=== PATIENT | female | born 1940 | race Caucasian/White ===

== ENCOUNTER 2016-12-15 15:02 | Outpatient (CLI) | payer OTHER ==
--- NOTE | 2016-12-15 19:08 | Diagnostic Imaging Report ---
JARRETT ORONA [facility] [id number] [facility] [address] [address] Report Submission Date: Dec 15, 2016 3:49:22 PM CDT Patient Study Name: SKIP ESCALANTE Date: Dec 15, 2016 3:17:07 PM CDT Modality Type: CR Gender: F Description: CHEST : 42 Institution: [facility] Physician: JARRETT ORONA 3 views of the chest History: RT RIBS, UPPER RT POSTERIOR RIB PAIN AFTER FALL ON MONDAY, PAINFUL TO BREATH Findings: No comparison studies Osseous superimposition and deformity posterior right 2nd and 1st ribs seen only on the oblique view concerning for minimally displaced fracture Degenerative changes are noted at the right shoulder, thoracolumbar spine, bones are demineralized Aortic calcification is present. There is minimal right basilar atelectasis. No pneumothorax on the right Impression: 1. Osseous deformity right posterior 1st and 2nd ribs, seen only on the oblique view suggestive of minimally displaced fracture. Underlying minimal right upper lung parenchymal opacity may be due to underlying contusion. No right pneumothorax 2. Demineralized bones. Minimal right basilar atelectasis 3.Degenerative changes right shoulder Electronically signed on Dec 15, 2016 3:49:22 PM CDT by: Christen Jensen Findings discussed by Dr. Jensen with Dr. Orona on 12/15/16 at approx. 3: 52 pm PROGRAM REVIEW DIRECTOR Addendum electronically signed by Christen Jensen on December 15, 2016 3:52:13 PM CDT MTDD
== END 2016-12-15 15:03 ==
LOC: RAD 15:02
PROVIDERS: ATTEND Family Medicine
DX: S20.211A Contusion of right front wall of thorax, initial encounter (principal); X58.XXXA Exposure to other specified factors, initial encounter; Y93.9 Activity, unspecified; Y99.9 Unspecified external cause status
CPT/HCPCS: 71100

== ENCOUNTER 2017-03-02 12:54 | Outpatient (CLI) | payer OTHER | END 2017-03-02 12:55 | LOC: LABRHC 12:54 | PROVIDERS: ATTEND Physician Assistant | DX: N12 Tubulo-interstitial nephritis, not specified as acute or chronic (principal) | CPT/HCPCS: 87086 ==

== ENCOUNTER 2017-03-09 10:52 | Outpatient (CLI) | payer OTHER ==
[2017-03-09 11:18] LABS: BASOPHILS % 0.8 (0.0-1.5); EOSINOPHILS % 4.4 % (0.0-6.8); MEAN CORPUSCULAR HEMOGLOBIN 29.8 pg (28.0-34.0); MEAN CORPUSCULAR VOLUME 87.3 fl (80.0-100.0); MONOCYTES % 3.2 % (0.0-11.0); NEUTROPHILS # 4.2 # k/uL (1.4-7.7)
[2017-03-09 11:54] LABS: eGFR (African) > 60; eGFR (Non-African) > 60
--- NOTE | 2017-03-09 18:46 | Diagnostic Imaging Report ---
JARRETT ANDERSON [facility] [address] [facility] [address] [address] Report Submission Date: Mar 09, 2017 11:52:22 AM CDT Patient Study Name: SKIP ESCALANTE Date: Mar 09, 2017 11:30:27 AM CDT Modality Type: CR Gender: F Description: SHOULDER : 42 Institution: [facility] Physician: JARRETT ANDERSON Examination: Plain film shoulder History: Lump Comparison exams: None provided Findings: 3 views of the shoulder demonstrate normal cortical margins. No evidence for fracture or dislocation. Advanced degenerative disease of the acromioclavicular joint with post superior and inferior spurring. No soft tissue abnormality Impression: Advanced acromioclavicular joint degenerative spurring: likely represents palpable lump. No fracture. Electronically signed on Mar 09, 2017 11:52:22 AM CDT by: Kanu NAGY
== END 2017-03-09 10:53 ==
LOC: LAB 10:52
PROVIDERS: ATTEND Family Medicine
DX: E11.8 Type 2 diabetes mellitus with unspecified complications (principal); R53.83 Other fatigue; M25.512 Pain in left shoulder
CPT/HCPCS: 36415; 73030; 80053; 80061; 82043; 83036; 84443; 85025

== ENCOUNTER 2017-04-20 09:09 | Outpatient (CLI) | payer OTHER ==
[2017-04-20 09:32] LABS: BASOPHILS % 0.8 (0.0-1.5); EOSINOPHILS % 4.3 % (0.0-6.8); MEAN CORPUSCULAR HEMOGLOBIN 29.7 pg (28.0-34.0); MONOCYTES % 3.2 % (0.0-11.0); NEUTROPHILS # 4.4 # k/uL (1.4-7.7)
[2017-04-20 10:03] LABS: eGFR (African) > 60; eGFR (Non-African) > 60
== END 2017-04-20 09:10 ==
LOC: LAB 09:09
PROVIDERS: ATTEND Family Medicine
DX: M79.1 Myalgia (principal)
CPT/HCPCS: 36415; 80053; 82550; 85025

== ENCOUNTER 2017-06-26 13:59 | Outpatient (CLI) | payer OTHER | END 2017-06-26 14:00 | LOC: LAB 13:59 | PROVIDERS: ATTEND Family Medicine | DX: E11.9 Type 2 diabetes mellitus without complications (principal) | CPT/HCPCS: 36415; 83036 ==

== ENCOUNTER 2017-08-29 14:28 | Outpatient (CLI) | payer OTHER ==
[2017-08-29 15:24] LABS: BASOPHILS % 0.8 (0.0-1.5); EOSINOPHILS % 4.3 % (0.0-6.8); MEAN CORPUSCULAR HEMOGLOBIN 29.5 pg (28.0-34.0); MEAN CORPUSCULAR VOLUME 88.4 fl (80.0-100.0); MONOCYTES % 3.8 % (0.0-11.0); NEUTROPHILS # 4.1 # k/uL (1.4-7.7)
[2017-08-29 15:52] LABS: eGFR (African) > 60; eGFR (Non-African) > 60
== END 2017-08-29 14:30 ==
LOC: LAB 14:28
PROVIDERS: ATTEND Family Medicine
DX: M62.838 Other muscle spasm (principal); R20.2 Paresthesia of skin
CPT/HCPCS: 36415; 80053; 83735; 85025

== ENCOUNTER 2017-09-20 09:52 | Outpatient (CLI) | payer OTHER ==
[2017-09-20 10:33] LABS: eGFR (African) > 60; eGFR (Non-African) > 60
== END 2017-09-20 09:53 ==
LOC: LAB 09:52
PROVIDERS: ATTEND Family Medicine
DX: E87.1 Hypo-osmolality and hyponatremia (principal)
CPT/HCPCS: 36415; 80048

== ENCOUNTER 2017-10-23 13:47 | Outpatient (CLI) | payer OTHER | END 2017-10-23 13:50 | LOC: LAB 13:47 | PROVIDERS: ATTEND Family Medicine | DX: E11.9 Type 2 diabetes mellitus without complications (principal) | CPT/HCPCS: 36415; 83036 ==

== ENCOUNTER 2017-11-23 09:55 | Outpatient (CLI) | payer OTHER | END 2017-11-23 09:56 | LOC: RT 09:55 | PROVIDERS: ATTEND Family Medicine | DX: I65.29 Occlusion and stenosis of unspecified carotid artery (principal) ==

== ENCOUNTER 2017-12-14 16:00 | Inpatient (IN) | payer OTHER ==
[2017-12-14] MEDS ORDERED: INSULIN ASPART 100 UNIT SQ SCH (17:45)
--- NOTE | 2017-12-14 17:49 | History and Physical Report ---
History of Present Illnes - History of Present Illness Reason for Visit: Weakness History of Present Illness: Patient transferred from [facility] for SNF care after having a L femoral-popliteal bypass on 12-05-17 for PAD. Her post op course was complicated by a tibial DVT of the L leg and she is now on Eliquis. 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 She reports no BM since before surgery but is comfortable. Pain has been controlled. She apparently spent the first 8 days not wanting to get out of bed but has been better the past 2. - Past Medical History Cardiac: HTN, Hyperlipidemia BUNDLE CLERK: Other (RLS) Gastrointestinal: Diverticulosis Heme/Onc: Anemia NOS, Cancer (CML - Dr. Farley - 2009) Psych: Anxiety, Depression Endocrine: Diabetes, Hypothyroidism - Past Surgical History Past Surgical History: Cholecystectomy, Cataract Removal, ( x 5), Hysterectomy, Hernia Repair, Tubal Ligation, Other (CTR) - Past Family History Mother Family History: Other (Adopted but aunt and brother with CAD) - Past Social History Smoke: No Alcohol: None Drugs: None Lives: With Family (She and her live in her daughter, Anne's basement.) Domestic Violence: Negative - Health Maintenance Health Maintenance: Influenza Vaccine, Pneumococcal Vaccine Influenza Vaccine: Current for this Influenza Season Pneumonia Vaccine: Yes Resuscitation Status: Resusciation Status Resuscitation Status Full Code Review of Systems - Review of Systems Constitutional: Weakness. negative: Fever Eyes: negative: pain ENT: negative: Ear Pain Respiratory: negative: Cough, Shortness of Breath Cardiovascular: negative: Chest Pain Gastrointestinal: Constipation, Other (Poor appetite until today). negative: Nausea, Vomiting, Abdominal Pain, Diarrhea Genitourinary: negative: Dysuria, Incontinence Musculoskeletal: Leg Pain Skin: negative: Rash Neurological: Weakness - Medications/Allergies Allergies/Adverse Reactions: Allergies Allergy/AdvReac Type Severity Reaction Status Date / Time CATY Inhibitors AdvReac Unknown Unverified 03/29/13 16:57 ezetimibe [From Zetia] AdvReac Unknown Unverified 03/29/13 16:57 imatinib mesylate AdvReac Unknown Unverified 03/29/13 16:57 [From Gleevec] pioglitazone HCl [From Actos] AdvReac Unknown Unverified 03/29/13 16:57 simvastatin [From Zocor] AdvReac Unknown Unverified 03/29/13 16:57 contrast dye AdvReac Unknown Uncoded 03/29/13 16:57 Home Medications: Home Medications Diclofenac Sodium 75 mg PO HS 12/14/17 Insulin Glargine,Hum.rec.anlog [Lantus Solostar] 37 units SQ HS 12/14/17 Metformin HCl [Glucophage] 1,000 mg PO 12/14/17 Nilotinib HCl [Tasigna] 200 mg PO BID 12/14/17 Current Inpatient Medications: Current Inpatient Medications Amitriptyline HCl (Elavil) 25 mg PO HS [facility] Carvedilol (Coreg) 6.25 mg PO BID [facility] Gabapentin (Neurontin) 600 mg PO TID [facility] Insulin Detemir (Levemir Flex-Pen) 37 unit SQ HS [facility] Insulin Human Regular (Humulin R) 14 unit SQ AC15 [facility] Levothyroxine Sodium (Synthroid) 200 mcg PO 0700 [facility] Losartan Potassium (Cozaar) 100 mg PO DAILY [facility] Metformin HCl (Glucophage) 1,000 mg PO [facility] Miscellaneous (Diclofenac Sodium [Diclofenac Sodium]) 75 mg PO HS [facility] Miscellaneous (Nilotinib Hcl [Tasigna]) 200 mg PO BID [facility] Miscellaneous (Chem Sticks) 1 each CHEMQID [facility] Exam - Exam General: Alert, Oriented to Person, Oriented to Place, Oriented to Time, Cooperative, No acute distress HEENT: Atraumatic, PERRLA, EOMI, Mouth Mucous membr. moist/[place], Nose Mucous membr. moist/[place] Neck: Normal Range of Motion Lungs: Clear to auscultation, Normal air movement, Speaks full Sentences Cardiovascular: Regular rate Peripheral Pulses: 2+ B Abdomen: Normal bowel sounds Integumentary: Normal, Other (5 stapled incisions on the L leg. Mild erythema at staple sites. No drainage.) Extremities: No edema Neurological: Generalized Weakness Psych/Mental Status: Mental status NL, Mood NL, Appropriate Affect, Intact Judgment Assessment/Plan - Assessment/Plan (1) Weakness Status: Acute Current Visit: Yes Plan: Will admit patient to SNF for PT/OT for endurance and strengthening. (2) S/P femoral-popliteal bypass surgery Status: Acute Current Visit: Yes Plan: Patient is doing well. She is scheduled to see Dr. Santiago on 12-27-17 at 10:30 for wound check. We do not have staple removal orders. Will check with him. (3) Left leg DVT Status: Acute Current Visit: Yes Qualifiers: Affected thrombotic vein of extremity: tibial Chronicity: acute Qualified Code(s): I82.442 - Acute embolism and thrombosis of left tibial vein Plan: Patient is currently on Eliquis for this. She is on a lower dose of 2.5 mg bid due to the interaction with her chemotherapy medication. (4) CML (chronic myelocytic leukemia) Status: Chronic Current Visit: No Plan: Continue chemotherapy medication. Labs in a week and fax to DR. Farley. (5) HTN (hypertension) Status: Chronic Current Visit: No Qualifiers: Hypertension type: essential hypertension Qualified Code(s): I10 - Essential (primary) hypertension Plan: While at [facility] HCTZ 12.5 mg was added to her regimen. HOwever I do not see it on her d/c orders. Will watch BP. (6) Anemia Status: Acute Current Visit: Yes Qualifiers: Anemia type: unspecified type Qualified Code(s): D64.9 - Anemia, unspecified (7) Diabetes Status: Acute Current Visit: Yes Qualifiers: Diabetes mellitus type: type 2 Diabetes mellitus complication status: without complication Plan: A1C had been in the 7 range until September 2017 when it was over 8. She is now on basal insulin as well as SSI. Will watch closely. VTE Assessment - RISK FACTOR SCORE VTE RISK FACTOR SCORES: AGE OVER 60 YEARS, MAJOR SURGERY/ANESTHESIA TIME > 1 HOUR, MALIGNANCY AND/OR CHEMOTHERAPY, DOCUMENTED HX OF VTE - RISK VTE HIGH RISK: SCORE OF 3-4 (RISK PROXIMAL DVT 4-8%) PROPHYLAXIS NEEDED
[2017-12-14] MEDS ORDERED: MAGNESIUM HYDROXIDE 400 MG/5 ML 30ML UDC PO PRN (17:54)
[2017-12-14] MEDS ORDERED: GABAPENTIN 600 MG PO SCH (18:00)
[2017-12-14] MEDS: INSULIN DETEMIR 100 UNIT/ML 3ML PEN.INJCTR SQ SCH ×2 (18:14→20:27)
[2017-12-14] MEDS: LEVOTHYROXINE SODIUM 100 MCG TABLET PO SCH (18:15)
[2017-12-14] MEDS: POLYETHYLENE GLYCOL 3350 17 GM POWD.PACK PO SCH (19:19)
[2017-12-14] MEDS: GABAPENTIN 300 MG CAPSULE PO SCH (19:19)
[2017-12-14] MEDS: APIXABAN 2.5 MG TABLET PO SCH ×2 (19:20→20:24)
[2017-12-14 20:10] VITALS: BMI 35.7
[2017-12-14] MEDS: AMITRIPTYLINE HCL 25 MG TABLET PO SCH (20:25)
[2017-12-14] MEDS: CARVEDILOL 6.25 MG TABLET PO SCH (20:25)
[2017-12-14] MEDS: NILOTINIB HCL 200 MG PO SCH (20:26)
[2017-12-14] MEDS ORDERED: INSULIN GLARGINE HUM REC ANLOG 37 UNIT SQ SCH (21:00)
[2017-12-14] MEDS ORDERED: DICLOFENAC SODIUM 75 MG PO SCH (21:00)
[2017-12-15] MEDS: HYDROcodone /APAP 5/325 1 EACH TABLET PO PRN ×2 (00:44→09:33)
[2017-12-15] MEDS: LEVOTHYROXINE SODIUM 100 MCG TABLET PO SCH (06:00)
[2017-12-15] MEDS: INSULIN REGULAR, HUMAN 100 UNIT/ML 3ML VIAL SQ SCH ×3 (08:06→17:04)
[2017-12-15] MEDS ORDERED: VALSARTAN 320 MG PO SCH (09:00)
[2017-12-15] MEDS ORDERED: LEVOTHYROXINE SODIUM 200 MCG PO SCH (09:00)
[2017-12-15] MEDS: GABAPENTIN 300 MG CAPSULE PO SCH ×3 (09:33→17:04)
[2017-12-15] MEDS: APIXABAN 2.5 MG TABLET PO SCH ×2 (09:33→20:43)
[2017-12-15] MEDS: CARVEDILOL 6.25 MG TABLET PO SCH ×2 (09:33→20:42)
[2017-12-15] MEDS: LOSARTAN POTASSIUM 50 MG TABLET PO SCH (09:34)
[2017-12-15] MEDS: NILOTINIB HCL 200 MG PO SCH ×2 (09:34→20:45)
[2017-12-15] MEDS: POLYETHYLENE GLYCOL 3350 17 GM POWD.PACK PO SCH (11:14)
[2017-12-15] MEDS: AMITRIPTYLINE HCL 25 MG TABLET PO SCH (20:43)
[2017-12-15] MEDS: DICLOFENAC SODIUM 75 MG PO SCH (20:43)
[2017-12-15] MEDS: INSULIN DETEMIR 100 UNIT/ML 3ML PEN.INJCTR SQ SCH (20:45)
[2017-12-15] MEDS: ACETAMINOPHEN 325 MG TABLET PO PRN (20:50)
[2017-12-16] MEDS: LEVOTHYROXINE SODIUM 100 MCG TABLET PO SCH (06:05)
[2017-12-16 08:08] LABS: BASOPHILS % 0.6 (0.0-1.5); EOSINOPHILS % 3.6 % (0.0-6.8); MEAN CORPUSCULAR HEMOGLOBIN 28.1 pg (28.0-34.0); MEAN CORPUSCULAR VOLUME 93.3 fl (80.0-100.0); MONOCYTES % 3.7 % (0.0-11.0); NEUTROPHILS # 6.3 # k/uL (1.4-7.7)
[2017-12-16] MEDS: INSULIN REGULAR, HUMAN 100 UNIT/ML 3ML VIAL SQ SCH ×3 (08:17→16:15)
[2017-12-16] MEDS: GABAPENTIN 300 MG CAPSULE PO SCH ×3 (08:23→17:46)
[2017-12-16] MEDS: LOSARTAN POTASSIUM 50 MG TABLET PO SCH (08:23)
[2017-12-16] MEDS: CARVEDILOL 6.25 MG TABLET PO SCH ×2 (08:23→20:22)
[2017-12-16] MEDS: APIXABAN 2.5 MG TABLET PO SCH ×2 (08:23→20:23)
--- NOTE | 2017-12-16 08:27 | Inpatient Progress Note ---
Subjective - Required Recertification Statement I anticipate X number of days because-include discharge plan: 20 - Review of Systems Subjective: I was called last night about patient temp 100.1. Today it's 97.6. Denies any complaints. She reports she hasn't urinated since yesterday afternoon but nursing says they put her in a depends last night and changed it twice. She had a UTI and urinary retention at [facility]. Denies pain with urination. Appetite a little better today. General: Denies: Chills, Night Sweats Pulmonary: Denies: Dyspnea, Cough Gastrointestinal: Denies: Nausea, Vomiting, Abdominal Pain Genitourinary: Denies: Dysuria, Frequency Musculoskeletal: Denies: Leg Pain Objective - Exam Vitals and I&O: Vital Signs Temp 100.1 F H 12/15/17 20:31 Pulse 83 12/15/17 20:31 Resp 18 12/15/17 20:31 BP 158/69 12/15/17 20:31 Pulse Ox 93 12/15/17 20:31 Intake & Output 12/15/17 12/15/17 12/16/17 11:59 23:59 11:59 Intake Total 460 840 120 Balance 460 840 120 Intake: Oral 460 840 120 Other: Voiding Method Bedside Commode Bedside Commode # Voids 1 2 General: Alert, Oriented to Person, Oriented to Place, Oriented to Time, Cooperative Lungs: Clear to auscultation, Normal air movement, Speaks full Sentences Cardiovascular: Regular rate Abdomen: Normal bowel sounds, Soft, No tenderness Extremities: No edema, Other (Incisions c/d/i. ) - Results Results: Laboratory Results WBC 10.60 K/ul (4.00-12.00) 12/16/17 08:00 RBC 2.88 M/ul (3.90-5.20) L 12/16/17 08:00 Hgb 8.1 g/dL (12.0-16.0) L 12/16/17 08:00 Hct 26.8 % (34.5-46.5) L 12/16/17 08:00 MCV 93.3 fl (80.0-100.0) 12/16/17 08:00 MCH 28.1 pg (28.0-34.0) 12/16/17 08:00 MCHC 30.1 g/dL (30.0-36.0) 12/16/17 08:00 RDW 13.7 % (11.3-14.3) 12/16/17 08:00 Plt Count 418 K/mm3 (130-400) H 12/16/17 08:00 Neut % (Auto) 59.1 % (39.0-79.0) 12/16/17 08:00 Lymph % (Auto) 30.6 % (16.0-50.0) 12/16/17 08:00 [place] % (Auto) 3.7 % (0.0-11.0) 12/16/17 08:00 Eos % (Auto) 3.6 % (0.0-6.8) 12/16/17 08:00 Baso % (Auto) 0.6 (0.0-1.5) 12/16/17 08:00 Neut # (Auto) 6.3 # k/uL (1.4-7.7) 12/16/17 08:00 Lymph # (Auto) 3.2 # k/uL (0.6-4.0) 12/16/17 08:00 [place] # (Auto) 0.4 # k/uL (0.0-0.9) 12/16/17 08:00 Eos # (Auto) 0.4 # k/uL (0.0-0.6) 12/16/17 08:00 Baso # (Auto) 0.1 # k/uL (0.0-0.5) 12/16/17 08:00 Reactive Lymphs % 2.4 % (0.0-5.0) 12/16/17 08:00 Reactive Lymphs # 0.3 # k/uL (0.0-0.8) 12/16/17 08:00 Assessment/Plan - Assessment/Plan (1) Weakness Status: Acute Current Visit: Yes (2) S/P femoral-popliteal bypass surgery Status: Acute Current Visit: Yes (3) Left leg DVT Status: Acute Current Visit: Yes Qualifiers: Affected thrombotic vein of extremity: tibial Chronicity: acute Qualified Code(s): I82.442 - Acute embolism and thrombosis of left tibial vein (4) CML (chronic myelocytic leukemia) Status: Chronic Current Visit: No (5) HTN (hypertension) Status: Chronic Current Visit: No Qualifiers: Hypertension type: essential hypertension Qualified Code(s): I10 - Essential (primary) hypertension (6) Anemia Status: Acute Current Visit: Yes Qualifiers: Anemia type: unspecified type Qualified Code(s): D64.9 - Anemia, unspecified (7) Diabetes Status: Acute Current Visit: Yes Qualifiers: Diabetes mellitus type: type 2 Diabetes mellitus complication status: without complication (8) Elevated temperature Status: Acute Current Visit: Yes Plan: Resolved this am. Will have her work on IS today. STaff to watch bowels and urination closely and report to me. WBC normal. Known DVT. No infection in wounds.
[2017-12-16] MEDS: NILOTINIB HCL 200 MG PO SCH ×2 (10:00→20:25)
[2017-12-16] MEDS: POLYETHYLENE GLYCOL 3350 17 GM POWD.PACK PO SCH ×2 (11:47→11:58)
[2017-12-16] MEDS: DICLOFENAC SODIUM 75 MG PO SCH (20:22)
[2017-12-16] MEDS: INSULIN DETEMIR 100 UNIT/ML 3ML PEN.INJCTR SQ SCH (20:23)
[2017-12-16] MEDS: AMITRIPTYLINE HCL 25 MG TABLET PO SCH (20:25)
[2017-12-16] MEDS: traMADol HCL 50 MG TABLET PO PRN (20:27)
[2017-12-17] MEDS: LEVOTHYROXINE SODIUM 100 MCG TABLET PO SCH (06:29)
[2017-12-17] MEDS: INSULIN REGULAR, HUMAN 100 UNIT/ML 3ML VIAL SQ SCH ×3 (07:48→16:45)
[2017-12-17] MEDS: GABAPENTIN 300 MG CAPSULE PO SCH ×3 (09:17→18:04)
[2017-12-17] MEDS: CARVEDILOL 6.25 MG TABLET PO SCH ×2 (09:17→20:58)
[2017-12-17] MEDS: APIXABAN 2.5 MG TABLET PO SCH ×2 (09:17→20:58)
[2017-12-17] MEDS: NILOTINIB HCL 200 MG PO SCH ×2 (09:18→20:58)
[2017-12-17] MEDS: LOSARTAN POTASSIUM 50 MG TABLET PO SCH (09:19)
[2017-12-17] MEDS: traMADol HCL 50 MG TABLET PO PRN (09:21)
[2017-12-17] MEDS: POLYETHYLENE GLYCOL 3350 17 GM POWD.PACK PO SCH (11:20)
[2017-12-17] MEDS: INSULIN DETEMIR 100 UNIT/ML 3ML PEN.INJCTR SQ SCH (20:58)
[2017-12-17] MEDS: AMITRIPTYLINE HCL 25 MG TABLET PO SCH (20:58)
[2017-12-17] MEDS: DICLOFENAC SODIUM 75 MG PO SCH (20:58)
[2017-12-18] MEDS: LEVOTHYROXINE SODIUM 100 MCG TABLET PO SCH (06:25)
[2017-12-18] MEDS: INSULIN REGULAR, HUMAN 100 UNIT/ML 3ML VIAL SQ SCH ×3 (07:52→16:45)
[2017-12-18] MEDS: traMADol HCL 50 MG TABLET PO PRN ×2 (08:03→17:52)
[2017-12-18] MEDS: CARVEDILOL 6.25 MG TABLET PO SCH ×2 (08:03→20:13)
[2017-12-18] MEDS: GABAPENTIN 300 MG CAPSULE PO SCH ×3 (08:04→17:52)
[2017-12-18] MEDS: LOSARTAN POTASSIUM 50 MG TABLET PO SCH (08:04)
[2017-12-18] MEDS: APIXABAN 2.5 MG TABLET PO SCH ×2 (08:04→20:13)
[2017-12-18] MEDS: NILOTINIB HCL 200 MG PO SCH ×2 (09:50→20:13)
[2017-12-18] MEDS: POLYETHYLENE GLYCOL 3350 17 GM POWD.PACK PO SCH (11:34)
--- NOTE | 2017-12-18 13:05 | Inpatient Progress Note ---
Subjective - Required Recertification Statement I anticipate X number of days because-include discharge plan: 10 - Review of Systems Subjective: Staff concerned about stapled area being red. Also having some muscle spasms. Objective - Exam Vitals and I&O: Vital Signs Temp 97.7 F 12/18/17 08:13 Pulse 70 12/18/17 09:00 Resp 18 12/18/17 09:00 BP 146/74 12/18/17 08:13 Pulse Ox 94 12/18/17 08:13 Intake & Output 12/17/17 12/18/17 12/18/17 23:59 11:59 23:59 Intake Total 250 370 500 Balance 250 370 500 Intake: Oral 250 370 500 Other: Voiding Method Bedside Commode Bedside Commode # Voids 1 1 # Bowel Movements 1 General: Alert, Oriented to Person, Oriented to Place, Oriented to Time, Cooperative Lungs: Clear to auscultation Cardiovascular: Regular rate Extremities: Other (Stapled area with increased erythema around rosamaria from previous exam. No drainage or tenderness.) - Results Results: Laboratory Results WBC 10.60 K/ul (4.00-12.00) 12/16/17 08:00 RBC 2.88 M/ul (3.90-5.20) L 12/16/17 08:00 Hgb 8.1 g/dL (12.0-16.0) L 12/16/17 08:00 Hct 26.8 % (34.5-46.5) L 12/16/17 08:00 MCV 93.3 fl (80.0-100.0) 12/16/17 08:00 MCH 28.1 pg (28.0-34.0) 12/16/17 08:00 MCHC 30.1 g/dL (30.0-36.0) 12/16/17 08:00 RDW 13.7 % (11.3-14.3) 12/16/17 08:00 Plt Count 418 K/mm3 (130-400) H 12/16/17 08:00 Neut % (Auto) 59.1 % (39.0-79.0) 12/16/17 08:00 Lymph % (Auto) 30.6 % (16.0-50.0) 12/16/17 08:00 [place] % (Auto) 3.7 % (0.0-11.0) 12/16/17 08:00 Eos % (Auto) 3.6 % (0.0-6.8) 12/16/17 08:00 Baso % (Auto) 0.6 (0.0-1.5) 12/16/17 08:00 Neut # (Auto) 6.3 # k/uL (1.4-7.7) 12/16/17 08:00 Lymph # (Auto) 3.2 # k/uL (0.6-4.0) 12/16/17 08:00 [place] # (Auto) 0.4 # k/uL (0.0-0.9) 12/16/17 08:00 Eos # (Auto) 0.4 # k/uL (0.0-0.6) 12/16/17 08:00 Baso # (Auto) 0.1 # k/uL (0.0-0.5) 12/16/17 08:00 Reactive Lymphs % 2.4 % (0.0-5.0) 12/16/17 08:00 Reactive Lymphs # 0.3 # k/uL (0.0-0.8) 12/16/17 08:00 Assessment/Plan - Assessment/Plan (1) Weakness Status: Acute Current Visit: Yes (2) S/P femoral-popliteal bypass surgery Status: Acute Current Visit: Yes Plan: Photo of rosamaria sent to Dr. Santiago who thinks it looks like a normal staple reaction. Will remove every other staple tomorrow. (3) Left leg DVT Status: Acute Current Visit: Yes Qualifiers: Affected thrombotic vein of extremity: tibial Chronicity: acute Qualified Code(s): I82.442 - Acute embolism and thrombosis of left tibial vein (4) CML (chronic myelocytic leukemia) Status: Chronic Current Visit: No (5) HTN (hypertension) Status: Chronic Current Visit: No Qualifiers: Hypertension type: essential hypertension Qualified Code(s): I10 - Essential (primary) hypertension (6) Anemia Status: Acute Current Visit: Yes Qualifiers: Anemia type: unspecified type Qualified Code(s): D64.9 - Anemia, unspecified (7) Diabetes Status: Acute Current Visit: Yes Qualifiers: Diabetes mellitus type: type 2 Diabetes mellitus complication status: without complication (8) Elevated temperature Status: Acute Current Visit: Yes
[2017-12-18] MEDS: AMITRIPTYLINE HCL 25 MG TABLET PO SCH (20:12)
[2017-12-18] MEDS: DICLOFENAC SODIUM 75 MG PO SCH (20:13)
[2017-12-18] MEDS: INSULIN DETEMIR 100 UNIT/ML 3ML PEN.INJCTR SQ SCH (20:19)
[2017-12-19] MEDS: traMADol HCL 50 MG TABLET PO PRN ×3 (02:44→20:53)
[2017-12-19 07:27] LABS: eGFR (African) > 60; eGFR (Non-African) > 60
[2017-12-19] MEDS: INSULIN REGULAR, HUMAN 100 UNIT/ML 3ML VIAL SQ SCH ×3 (07:30→16:35)
[2017-12-19] MEDS: CARVEDILOL 6.25 MG TABLET PO SCH ×2 (09:06→20:25)
[2017-12-19] MEDS: APIXABAN 2.5 MG TABLET PO SCH ×2 (09:07→20:25)
[2017-12-19] MEDS: GABAPENTIN 300 MG CAPSULE PO SCH ×3 (09:07→18:29)
[2017-12-19] MEDS: LOSARTAN POTASSIUM 50 MG TABLET PO SCH (09:12)
[2017-12-19] MEDS: NILOTINIB HCL 200 MG PO SCH ×2 (09:14→20:26)
[2017-12-19 10:49] LABS: BASOPHILS % 0.5 (0.0-1.5); EOSINOPHILS % 5.1 % (0.0-6.8); MEAN CORPUSCULAR HEMOGLOBIN 28.7 pg (28.0-34.0); MEAN CORPUSCULAR VOLUME 89.3 fl (80.0-100.0); MONOCYTES % 4.4 % (0.0-11.0); NEUTROPHILS # 5.4 # k/uL (1.4-7.7)
[2017-12-19] MEDS: POLYETHYLENE GLYCOL 3350 17 GM POWD.PACK PO SCH (11:13)
[2017-12-19] MEDS: LEVOTHYROXINE SODIUM 100 MCG TABLET PO SCH (19:38)
[2017-12-19] MEDS: AMITRIPTYLINE HCL 25 MG TABLET PO SCH (20:25)
[2017-12-19] MEDS: DICLOFENAC SODIUM 75 MG PO SCH (20:26)
[2017-12-19] MEDS: INSULIN DETEMIR 100 UNIT/ML 3ML PEN.INJCTR SQ SCH (20:54)
[2017-12-20] MEDS: LEVOTHYROXINE SODIUM 100 MCG TABLET PO SCH (06:14)
[2017-12-20] MEDS: INSULIN REGULAR, HUMAN 100 UNIT/ML 3ML VIAL SQ SCH ×3 (07:48→16:47)
[2017-12-20] MEDS: GABAPENTIN 300 MG CAPSULE PO SCH ×3 (09:33→17:34)
[2017-12-20] MEDS: CARVEDILOL 6.25 MG TABLET PO SCH ×2 (09:33→20:09)
[2017-12-20] MEDS: APIXABAN 2.5 MG TABLET PO SCH ×2 (09:34→20:08)
[2017-12-20] MEDS: NILOTINIB HCL 200 MG PO SCH ×2 (09:34→20:10)
[2017-12-20] MEDS: traMADol HCL 50 MG TABLET PO PRN ×2 (09:36→21:01)
[2017-12-20] MEDS: LOSARTAN POTASSIUM 50 MG TABLET PO SCH (09:37)
[2017-12-20] MEDS: POLYETHYLENE GLYCOL 3350 17 GM POWD.PACK PO SCH (11:24)
[2017-12-20] MEDS: AMITRIPTYLINE HCL 25 MG TABLET PO SCH (20:09)
[2017-12-20] MEDS: DICLOFENAC SODIUM 75 MG PO SCH (20:10)
[2017-12-20] MEDS: INSULIN DETEMIR 100 UNIT/ML 3ML PEN.INJCTR SQ SCH (20:10)
[2017-12-21] MEDS: LEVOTHYROXINE SODIUM 100 MCG TABLET PO SCH (06:13)
[2017-12-21] MEDS: INSULIN REGULAR, HUMAN 100 UNIT/ML 3ML VIAL SQ SCH ×3 (09:34→17:16)
[2017-12-21] MEDS: APIXABAN 2.5 MG TABLET PO SCH ×2 (10:09→20:03)
[2017-12-21] MEDS: CARVEDILOL 6.25 MG TABLET PO SCH ×2 (10:09→20:03)
[2017-12-21] MEDS: GABAPENTIN 300 MG CAPSULE PO SCH ×3 (10:09→17:39)
[2017-12-21] MEDS: LOSARTAN POTASSIUM 50 MG TABLET PO SCH (10:25)
[2017-12-21] MEDS: NILOTINIB HCL 200 MG PO SCH ×2 (10:25→20:07)
[2017-12-21] MEDS: POLYETHYLENE GLYCOL 3350 17 GM POWD.PACK PO SCH (10:26)
[2017-12-21] MEDS: traMADol HCL 50 MG TABLET PO PRN ×3 (11:25→23:37)
[2017-12-21] MEDS: DICLOFENAC SODIUM 75 MG PO SCH (20:03)
[2017-12-21] MEDS: INSULIN DETEMIR 100 UNIT/ML 3ML PEN.INJCTR SQ SCH (20:03)
[2017-12-21] MEDS: AMITRIPTYLINE HCL 25 MG TABLET PO SCH (20:03)
[2017-12-22] MEDS: LEVOTHYROXINE SODIUM 100 MCG TABLET PO SCH (06:06)
[2017-12-22] MEDS: INSULIN REGULAR, HUMAN 100 UNIT/ML 3ML VIAL SQ SCH ×3 (07:41→18:44)
[2017-12-22] MEDS: LOSARTAN POTASSIUM 50 MG TABLET PO SCH (08:53)
[2017-12-22] MEDS: NILOTINIB HCL 200 MG PO SCH ×2 (08:55→21:42)
[2017-12-22] MEDS: APIXABAN 2.5 MG TABLET PO SCH ×2 (08:56→21:40)
[2017-12-22] MEDS: GABAPENTIN 300 MG CAPSULE PO SCH ×3 (08:56→18:44)
[2017-12-22] MEDS: CARVEDILOL 6.25 MG TABLET PO SCH ×2 (08:56→21:40)
[2017-12-22] MEDS: POLYETHYLENE GLYCOL 3350 17 GM POWD.PACK PO SCH (12:16)
[2017-12-22] MEDS: AMITRIPTYLINE HCL 25 MG TABLET PO SCH (21:41)
[2017-12-22] MEDS: DICLOFENAC SODIUM 75 MG PO SCH (21:42)
[2017-12-22] MEDS: INSULIN DETEMIR 100 UNIT/ML 3ML PEN.INJCTR SQ SCH (22:02)
[2017-12-22] MEDS: traMADol HCL 50 MG TABLET PO PRN (22:17)
[2017-12-23] MEDS: LEVOTHYROXINE SODIUM 100 MCG TABLET PO SCH (06:13)
[2017-12-23] MEDS: INSULIN REGULAR, HUMAN 100 UNIT/ML 3ML VIAL SQ SCH ×3 (07:23→17:36)
[2017-12-23] MEDS: traMADol HCL 50 MG TABLET PO PRN (08:27)
[2017-12-23] MEDS: CARVEDILOL 6.25 MG TABLET PO SCH ×2 (08:56→20:08)
[2017-12-23] MEDS: LOSARTAN POTASSIUM 50 MG TABLET PO SCH (08:56)
[2017-12-23] MEDS: APIXABAN 2.5 MG TABLET PO SCH ×2 (08:57→20:08)
[2017-12-23] MEDS: NILOTINIB HCL 200 MG PO SCH ×2 (08:57→20:09)
[2017-12-23] MEDS: GABAPENTIN 300 MG CAPSULE PO SCH ×3 (08:57→17:37)
--- NOTE | 2017-12-23 09:31 | Inpatient Progress Note ---
Subjective - Required Recertification Statement I anticipate X number of days because-include discharge plan: 7 days - Review of Systems Subjective: Nursing staff has noticed some swelling to the left groin area. Patient does not relate to me any increase pain in the area. No drainage noted. Not red or warm to touch. Incisions look clean and dry. No other complaints, seems to be progressing with PT and OT. Objective - Exam Vitals and I&O: Vital Signs Temp 98 F 12/22/17 20:12 Pulse 76 12/22/17 21:00 Resp 18 12/22/17 21:00 BP 148/60 12/22/17 20:12 Pulse Ox 96 12/22/17 20:12 Intake & Output 12/22/17 12/22/17 12/23/17 11:59 23:59 11:59 Intake Total 520 1860 240 Balance 520 1860 240 Intake: Oral 520 1860 240 Other: Voiding Method Bedside Commode # Voids 2 2 1 General: Alert, Oriented to Person, Oriented to Place, Oriented to Time Lungs: Clear to auscultation, Normal air movement, Speaks full Sentences Cardiovascular: Regular rate, Normal S1, Normal S2, No murmurs Extremities: Other (8x9cm area of induration/hardness to the left upper leg by the proximal incision, no erythema noted. No drainage noted. Nontender to palation. ) Skin: Normal Psych/Mental Status: Mental status NL, Mood NL, Appropriate Affect - Results Results: Laboratory Results WBC 8.70 K/ul (4.00-12.00) 12/19/17 10:35 RBC 2.94 M/ul (3.90-5.20) L 12/19/17 10:35 Hgb 8.4 g/dL (12.0-16.0) L 12/19/17 10:35 Hct 26.2 % (34.5-46.5) L 12/19/17 10:35 MCV 89.3 fl (80.0-100.0) 12/19/17 10:35 MCH 28.7 pg (28.0-34.0) 12/19/17 10:35 MCHC 32.2 g/dL (30.0-36.0) 12/19/17 10:35 RDW 13.7 % (11.3-14.3) 12/19/17 10:35 Plt Count 460 K/mm3 (130-400) H 12/19/17 10:35 Neut % (Auto) 62.2 % (39.0-79.0) 12/19/17 10:35 Lymph % (Auto) 25.4 % (16.0-50.0) 12/19/17 10:35 [place] % (Auto) 4.4 % (0.0-11.0) 12/19/17 10:35 Eos % (Auto) 5.1 % (0.0-6.8) 12/19/17 10:35 Baso % (Auto) 0.5 (0.0-1.5) 12/19/17 10:35 Neut # (Auto) 5.4 # k/uL (1.4-7.7) 12/19/17 10:35 Lymph # (Auto) 2.2 # k/uL (0.6-4.0) 12/19/17 10:35 [place] # (Auto) 0.4 # k/uL (0.0-0.9) 12/19/17 10:35 Eos # (Auto) 0.4 # k/uL (0.0-0.6) 12/19/17 10:35 Baso # (Auto) 0.0 # k/uL (0.0-0.5) 12/19/17 10:35 Reactive Lymphs % 2.3 % (0.0-5.0) 12/19/17 10:35 Reactive Lymphs # 0.2 # k/uL (0.0-0.8) 12/19/17 10:35 Sodium 138 mmol/L (136-145) 12/19/17 06:02 Potassium 4.5 mmol/L (3.5-5.1) 12/19/17 06:02 Chloride 102 mmol/L (98-107) 12/19/17 06:02 Carbon Dioxide 26 mmol/L (22-30) 12/19/17 06:02 BUN 23 mg/dL (7-17) H 12/19/17 06:02 Creatinine 1.10 mg/dL (0.52-1.04) H 12/19/17 06:02 Estimated Creat Clear 67 12/19/17 06:02 Est GFR ( Amer) > 60 (60-) 12/19/17 06:02 Est GFR (Non-Af Amer) > 60 (60-) 12/19/17 06:02 Glucose 101 mg/dL (74-106) 12/19/17 06:02 Calcium 8.0 mg/dL (8.4-10.2) L 12/19/17 06:02 Magnesium 2.3 mg/dL (1.6-2.6) 12/20/17 06:00 Assessment/Plan - Assessment/Plan (1) Hematoma Status: Acute Current Visit: Yes Assessment: Appears to have a hematoma to the leg, I called Dr Santiago and discussed this with him. He advised to watch it and see him in clinic next week as long as no fever, chill, pain or erythema . (2) S/P femoral-popliteal bypass surgery Status: Acute Current Visit: Yes
[2017-12-23] MEDS: POLYETHYLENE GLYCOL 3350 17 GM POWD.PACK PO SCH (13:04)
[2017-12-23] MEDS: INSULIN DETEMIR 100 UNIT/ML 3ML PEN.INJCTR SQ SCH (20:04)
[2017-12-23] MEDS: AMITRIPTYLINE HCL 25 MG TABLET PO SCH (20:08)
[2017-12-23] MEDS: DICLOFENAC SODIUM 75 MG PO SCH (20:08)
[2017-12-24] MEDS: LEVOTHYROXINE SODIUM 100 MCG TABLET PO SCH (06:29)
[2017-12-24] MEDS: INSULIN REGULAR, HUMAN 100 UNIT/ML 3ML VIAL SQ SCH ×2 (08:20→12:52)
[2017-12-24] MEDS: CARVEDILOL 6.25 MG TABLET PO SCH ×2 (08:36→20:04)
[2017-12-24] MEDS: APIXABAN 2.5 MG TABLET PO SCH ×2 (08:37→20:04)
[2017-12-24] MEDS: GABAPENTIN 300 MG CAPSULE PO SCH ×3 (08:37→17:30)
[2017-12-24] MEDS: LOSARTAN POTASSIUM 50 MG TABLET PO SCH (08:40)
[2017-12-24] MEDS: NILOTINIB HCL 200 MG PO SCH ×2 (09:56→20:05)
[2017-12-24] MEDS: traMADol HCL 50 MG TABLET PO PRN ×2 (09:57→20:04)
[2017-12-24] MEDS: POLYETHYLENE GLYCOL 3350 17 GM POWD.PACK PO SCH (11:46)
[2017-12-24] MEDS ORDERED: INSULIN REGULAR, HUMAN 100 UNIT/ML 3ML VIAL SQ ONE (12:48)
[2017-12-24] MEDS: AMITRIPTYLINE HCL 25 MG TABLET PO SCH (20:04)
[2017-12-24] MEDS: DICLOFENAC SODIUM 75 MG PO SCH (20:05)
[2017-12-24] MEDS: INSULIN DETEMIR 100 UNIT/ML 3ML PEN.INJCTR SQ SCH (20:09)
[2017-12-25] MEDS: LEVOTHYROXINE SODIUM 100 MCG TABLET PO SCH (05:26)
[2017-12-25] MEDS: GABAPENTIN 300 MG CAPSULE PO SCH ×3 (10:15→17:22)
[2017-12-25] MEDS: APIXABAN 2.5 MG TABLET PO SCH ×2 (10:15→20:16)
[2017-12-25] MEDS: NILOTINIB HCL 200 MG PO SCH ×2 (10:16→20:19)
[2017-12-25] MEDS: CARVEDILOL 6.25 MG TABLET PO SCH ×2 (10:16→20:15)
[2017-12-25] MEDS: LOSARTAN POTASSIUM 50 MG TABLET PO SCH (10:16)
[2017-12-25] MEDS ORDERED: MORPHINE SULFATE 10MG/0.5ML ORAL SOLUTION PO ONE (10:29)
[2017-12-25] MEDS: POLYETHYLENE GLYCOL 3350 17 GM POWD.PACK PO SCH (11:29)
[2017-12-25] MEDS: traMADol HCL 50 MG TABLET PO PRN (12:46)
[2017-12-25] MEDS: AMITRIPTYLINE HCL 25 MG TABLET PO SCH (20:16)
[2017-12-25] MEDS: DICLOFENAC SODIUM 75 MG PO SCH (20:16)
[2017-12-25] MEDS: INSULIN DETEMIR 100 UNIT/ML 3ML PEN.INJCTR SQ SCH (20:23)
[2017-12-26] MEDS: traMADol HCL 50 MG TABLET PO PRN ×2 (02:24→22:49)
[2017-12-26] MEDS: LEVOTHYROXINE SODIUM 100 MCG TABLET PO SCH (06:03)
[2017-12-26] MEDS: GABAPENTIN 300 MG CAPSULE PO SCH ×3 (08:35→17:18)
[2017-12-26] MEDS: LOSARTAN POTASSIUM 50 MG TABLET PO SCH (08:35)
[2017-12-26] MEDS: APIXABAN 2.5 MG TABLET PO SCH ×2 (08:35→20:15)
[2017-12-26] MEDS: CARVEDILOL 6.25 MG TABLET PO SCH ×2 (08:35→20:15)
[2017-12-26] MEDS: NILOTINIB HCL 200 MG PO SCH ×2 (08:37→20:15)
[2017-12-26] MEDS: POLYETHYLENE GLYCOL 3350 17 GM POWD.PACK PO SCH (11:07)
[2017-12-26] MEDS: INSULIN DETEMIR 100 UNIT/ML 3ML PEN.INJCTR SQ SCH (20:10)
[2017-12-26] MEDS: DICLOFENAC SODIUM 75 MG PO SCH (20:15)
[2017-12-26] MEDS: AMITRIPTYLINE HCL 25 MG TABLET PO SCH (20:15)
[2017-12-27] MEDS: LEVOTHYROXINE SODIUM 100 MCG TABLET PO SCH (06:30)
[2017-12-27] MEDS: APIXABAN 2.5 MG TABLET PO SCH ×2 (08:34→20:43)
[2017-12-27] MEDS: CARVEDILOL 6.25 MG TABLET PO SCH ×2 (08:34→20:42)
[2017-12-27] MEDS: NILOTINIB HCL 200 MG PO SCH ×2 (08:34→20:46)
[2017-12-27] MEDS: GABAPENTIN 300 MG CAPSULE PO SCH ×3 (08:34→17:26)
[2017-12-27] MEDS: LOSARTAN POTASSIUM 50 MG TABLET PO SCH (08:34)
[2017-12-27] MEDS: POLYETHYLENE GLYCOL 3350 17 GM POWD.PACK PO SCH (14:19)
[2017-12-27] MEDS: DICLOFENAC SODIUM 75 MG PO SCH (20:43)
[2017-12-27] MEDS: AMITRIPTYLINE HCL 25 MG TABLET PO SCH (20:44)
[2017-12-27] MEDS: INSULIN DETEMIR 100 UNIT/ML 3ML PEN.INJCTR SQ SCH (20:55)
[2017-12-28] MEDS: LEVOTHYROXINE SODIUM 100 MCG TABLET PO SCH (06:02)
[2017-12-28] MEDS: CARVEDILOL 6.25 MG TABLET PO SCH ×2 (09:26→20:25)
[2017-12-28] MEDS: LOSARTAN POTASSIUM 50 MG TABLET PO SCH (09:26)
[2017-12-28] MEDS: APIXABAN 2.5 MG TABLET PO SCH ×2 (09:26→20:25)
[2017-12-28] MEDS: GABAPENTIN 300 MG CAPSULE PO SCH ×3 (09:27→18:03)
[2017-12-28] MEDS: NILOTINIB HCL 200 MG PO SCH ×2 (09:28→20:27)
--- NOTE | 2017-12-28 10:00 | Inpatient Progress Note ---
Subjective - Required Recertification Statement I anticipate X number of days because-include discharge plan: 5 - Review of Systems Subjective: Patient doing well. Had her sutures out yesterday by Vascular. Compression wrap placed on hematoma at L groin. Tolerating well. Still has pain with legs and walking is a bit unsteady as a result. Objective - Exam Vitals and I&O: Vital Signs Temp 97.5 F L 12/27/17 21:00 Pulse 79 12/27/17 21:00 Resp 16 12/27/17 21:00 BP 136/64 12/27/17 21:00 Pulse Ox 97 12/27/17 21:00 Intake & Output 12/27/17 12/27/17 12/28/17 11:59 23:59 11:59 Intake Total 360 850 240 Balance 360 850 240 Weight 80.286 kg Intake: Oral 360 850 240 Other: Voiding Method Bedside Commode Toilet # Voids 1 1 General: Alert, Oriented to Person, Oriented to Place, Oriented to Time, Cooperative, No acute distress Lungs: Clear to auscultation, Normal air movement, Speaks full Sentences Cardiovascular: Regular rate - Results Results: Laboratory Results WBC 8.70 K/ul (4.00-12.00) 12/19/17 10:35 RBC 2.94 M/ul (3.90-5.20) L 12/19/17 10:35 Hgb 8.4 g/dL (12.0-16.0) L 12/19/17 10:35 Hct 26.2 % (34.5-46.5) L 12/19/17 10:35 MCV 89.3 fl (80.0-100.0) 12/19/17 10:35 MCH 28.7 pg (28.0-34.0) 12/19/17 10:35 MCHC 32.2 g/dL (30.0-36.0) 12/19/17 10:35 RDW 13.7 % (11.3-14.3) 12/19/17 10:35 Plt Count 460 K/mm3 (130-400) H 12/19/17 10:35 Neut % (Auto) 62.2 % (39.0-79.0) 12/19/17 10:35 Lymph % (Auto) 25.4 % (16.0-50.0) 12/19/17 10:35 [place] % (Auto) 4.4 % (0.0-11.0) 12/19/17 10:35 Eos % (Auto) 5.1 % (0.0-6.8) 12/19/17 10:35 Baso % (Auto) 0.5 (0.0-1.5) 12/19/17 10:35 Neut # (Auto) 5.4 # k/uL (1.4-7.7) 12/19/17 10:35 Lymph # (Auto) 2.2 # k/uL (0.6-4.0) 12/19/17 10:35 [place] # (Auto) 0.4 # k/uL (0.0-0.9) 12/19/17 10:35 Eos # (Auto) 0.4 # k/uL (0.0-0.6) 12/19/17 10:35 Baso # (Auto) 0.0 # k/uL (0.0-0.5) 12/19/17 10:35 Reactive Lymphs % 2.3 % (0.0-5.0) 12/19/17 10:35 Reactive Lymphs # 0.2 # k/uL (0.0-0.8) 12/19/17 10:35 Sodium 138 mmol/L (136-145) 12/19/17 06:02 Potassium 4.5 mmol/L (3.5-5.1) 12/19/17 06:02 Chloride 102 mmol/L (98-107) 12/19/17 06:02 Carbon Dioxide 26 mmol/L (22-30) 12/19/17 06:02 BUN 23 mg/dL (7-17) H 12/19/17 06:02 Creatinine 1.10 mg/dL (0.52-1.04) H 12/19/17 06:02 Estimated Creat Clear 67 12/19/17 06:02 Est GFR ( Amer) > 60 (60-) 12/19/17 06:02 Est GFR (Non-Af Amer) > 60 (60-) 12/19/17 06:02 Glucose 101 mg/dL (74-106) 12/19/17 06:02 Calcium 8.0 mg/dL (8.4-10.2) L 12/19/17 06:02 Magnesium 2.3 mg/dL (1.6-2.6) 12/20/17 06:00 Assessment/Plan - Assessment/Plan (1) Weakness Status: Acute Current Visit: Yes (2) S/P femoral-popliteal bypass surgery Status: Acute Current Visit: Yes Plan: Due to leg pain from her L femoral-popiteal bypass, I feel patient needs a front wheeled walker to ambulate safely. RX sent to [facility]. Plan to d/c patient next week. (3) Left leg DVT Status: Acute Current Visit: Yes Qualifiers: Affected thrombotic vein of extremity: tibial Chronicity: acute Qualified Code(s): I82.442 - Acute embolism and thrombosis of left tibial vein (4) CML (chronic myelocytic leukemia) Status: Chronic Current Visit: No (5) HTN (hypertension) Status: Chronic Current Visit: No Qualifiers: Hypertension type: essential hypertension Qualified Code(s): I10 - Essential (primary) hypertension (6) Anemia Status: Acute Current Visit: Yes Qualifiers: Anemia type: unspecified type Qualified Code(s): D64.9 - Anemia, unspecified (7) Diabetes Status: Acute Current Visit: Yes Qualifiers: Diabetes mellitus type: type 2 Diabetes mellitus complication status: without complication Plan: Short acting insulin has been discontinued. Watch BS. (8) Elevated temperature Status: Acute Current Visit: Yes
[2017-12-28] MEDS: POLYETHYLENE GLYCOL 3350 17 GM POWD.PACK PO SCH (11:24)
[2017-12-28] MEDS: AMITRIPTYLINE HCL 25 MG TABLET PO SCH (20:26)
[2017-12-28] MEDS: DICLOFENAC SODIUM 75 MG PO SCH (20:28)
[2017-12-28] MEDS: INSULIN DETEMIR 100 UNIT/ML 3ML PEN.INJCTR SQ SCH (20:32)
[2017-12-28] MEDS: traMADol HCL 50 MG TABLET PO PRN (23:11)
[2017-12-29] MEDS: LEVOTHYROXINE SODIUM 100 MCG TABLET PO SCH (05:59)
[2017-12-29] MEDS: NILOTINIB HCL 200 MG PO SCH ×2 (09:26→21:33)
[2017-12-29] MEDS: APIXABAN 2.5 MG TABLET PO SCH ×2 (09:26→21:26)
[2017-12-29] MEDS: CARVEDILOL 6.25 MG TABLET PO SCH ×2 (09:26→21:26)
[2017-12-29] MEDS: GABAPENTIN 300 MG CAPSULE PO SCH ×3 (09:26→17:57)
[2017-12-29] MEDS: LOSARTAN POTASSIUM 50 MG TABLET PO SCH (09:27)
[2017-12-29] MEDS: POLYETHYLENE GLYCOL 3350 17 GM POWD.PACK PO SCH (11:15)
[2017-12-29] MEDS: AMITRIPTYLINE HCL 25 MG TABLET PO SCH (21:27)
[2017-12-29] MEDS: DICLOFENAC SODIUM 75 MG PO SCH (21:28)
[2017-12-29] MEDS: traMADol HCL 50 MG TABLET PO PRN (21:28)
[2017-12-29] MEDS: INSULIN DETEMIR 100 UNIT/ML 3ML PEN.INJCTR SQ SCH (21:34)
[2017-12-30] MEDS: LEVOTHYROXINE SODIUM 100 MCG TABLET PO SCH (06:33)
[2017-12-30] MEDS: APIXABAN 2.5 MG TABLET PO SCH ×2 (09:04→20:53)
[2017-12-30] MEDS: CARVEDILOL 6.25 MG TABLET PO SCH ×2 (09:04→20:53)
[2017-12-30] MEDS: LOSARTAN POTASSIUM 50 MG TABLET PO SCH (09:04)
[2017-12-30] MEDS: NILOTINIB HCL 200 MG PO SCH ×2 (09:04→20:54)
[2017-12-30] MEDS: GABAPENTIN 300 MG CAPSULE PO SCH ×3 (09:04→18:12)
[2017-12-30] MEDS: POLYETHYLENE GLYCOL 3350 17 GM POWD.PACK PO SCH (11:43)
[2017-12-30] MEDS: traMADol HCL 50 MG TABLET PO PRN ×2 (13:15→20:55)
[2017-12-30] MEDS: DICLOFENAC SODIUM 75 MG PO SCH (20:55)
[2017-12-30] MEDS: AMITRIPTYLINE HCL 25 MG TABLET PO SCH (20:57)
[2017-12-30] MEDS: INSULIN DETEMIR 100 UNIT/ML 3ML PEN.INJCTR SQ SCH (21:28)
[2017-12-31] MEDS: LEVOTHYROXINE SODIUM 100 MCG TABLET PO SCH (06:44)
[2017-12-31] MEDS: POLYETHYLENE GLYCOL 3350 17 GM POWD.PACK PO SCH (07:26)
[2017-12-31] MEDS: GABAPENTIN 300 MG CAPSULE PO SCH ×3 (08:37→17:43)
[2017-12-31] MEDS: CARVEDILOL 6.25 MG TABLET PO SCH ×2 (08:37→20:50)
[2017-12-31] MEDS: APIXABAN 2.5 MG TABLET PO SCH ×2 (08:37→20:50)
[2017-12-31] MEDS: NILOTINIB HCL 200 MG PO SCH ×2 (08:38→20:52)
[2017-12-31] MEDS: LOSARTAN POTASSIUM 50 MG TABLET PO SCH (08:39)
[2017-12-31] MEDS: ACETAMINOPHEN 325 MG TABLET PO PRN (17:25)
[2017-12-31] MEDS: AMITRIPTYLINE HCL 25 MG TABLET PO SCH (20:50)
[2017-12-31] MEDS: INSULIN DETEMIR 100 UNIT/ML 3ML PEN.INJCTR SQ SCH (20:55)
[2017-12-31] MEDS: traMADol HCL 50 MG TABLET PO PRN (21:19)
[2017-12-31] MEDS: DICLOFENAC SODIUM 75 MG PO SCH (21:20)
[2018-01-01] MEDS: LEVOTHYROXINE SODIUM 100 MCG TABLET PO SCH (06:41)
--- NOTE | 2018-01-01 08:18 | Discharge Summary ---
Discharge Summary - Discharge Sumary History of Present Illness: Patient transferred from [facility] for SNF care after having a L femoral-popliteal bypass on 12-05-17 for PAD. Her post op course was complicated by a tibial DVT of the L leg and she is now on Eliquis. 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 She reports no BM since before surgery but is comfortable. Pain has been controlled. She apparently spent the first 8 days not wanting to get out of bed but has been better the past 2 Condition at Discharge: Stable Home Medications: Ambulatory Orders Medication Instructions Recorded Diclofenac Sodium 75 mg PO HS 12/14/17 Metformin HCl [Glucophage] 1,000 mg PO 12/14/17 Nilotinib HCl [Tasigna] 200 mg PO BID 12/14/17 Acetaminophen [Tylenol] 650 mg PO Q6H PRN tablet 12/28/17 Apixaban [Eliquis] 2.5 mg PO BID #60 tablet 12/28/17 Insulin Glargine,Hum.rec.anlog 30 units SQ HS #0 12/28/17 [Lantus Solostar] Polyethylene Glycol 3350 [Miralax] 17 gm PO 1100 powd.pack 12/28/17 traMADol HCL [Ultram] 50 mg PO Q6H PRN tablet 12/28/17 Consultations this Visit: None Procedures this Visit: None Allergies/Adverse Reactions: Allergies Allergy/AdvReac Type Severity Reaction Status Date / Time CATY Inhibitors AdvReac Unknown Itchy Skin Verified 12/15/17 11:07 ezetimibe [From Zetia] AdvReac Unknown Itchy Skin Verified 12/15/17 11:07 imatinib mesylate AdvReac Unknown Itchy Skin Verified 12/15/17 11:07 [From Gleevec] pioglitazone HCl [From Actos] AdvReac Unknown Localized Verified 12/15/17 11:07 Swelling simvastatin [From Zocor] AdvReac Unknown Itchy Skin Verified 12/15/17 11:07 contrast dye AdvReac Unknown Itchy Skin Uncoded 12/15/17 11:07 Patient Problems: Current Active Problems Problem Status Onset Anemia Acute Diabetes Acute Elevated temperature Acute Hematoma Acute Left leg DVT Acute S/P femoral-popliteal bypass surgery Acute Weakness Acute Discharge Summary: Patient was admitted to SNF after undergoing a L fem-pop bypass. She also had a DVT postop at [facility]. She tolerated PT/OT well. Eliquis for DVT treatment. Due to lower BS, insulin regimen was altered and finally tid short acting insulin stopped. Patient was excited to see what diet control can do for your BS. Half of her rosamaria were removed by nursing due to irritation. The rest were removed by Dr. Santiago on 5-2. She did have a small hematoma that was pressure dressed. Patient was discharged home in good condition. Hospital Course: Discharge Dx: Weakness. s/p L fem-pop bypass. L DVT. DM. Disposition - home with home health.
[2018-01-01] MEDS: GABAPENTIN 300 MG CAPSULE PO SCH (08:44)
[2018-01-01] MEDS: APIXABAN 2.5 MG TABLET PO SCH (08:44)
[2018-01-01] MEDS: CARVEDILOL 6.25 MG TABLET PO SCH (08:44)
[2018-01-01] MEDS: LOSARTAN POTASSIUM 50 MG TABLET PO SCH (08:44)
[2018-01-01] MEDS: POLYETHYLENE GLYCOL 3350 17 GM POWD.PACK PO SCH (10:57)
[2018-01-01] MEDS: NILOTINIB HCL 200 MG PO SCH (10:59)
[2018-01-01 12:11] VITALS: BP 148/62
== END 2018-01-01 12:00 | disposition home health service (06) | DRG 948 ==
LOC: SOUTH 16:00
PROVIDERS: ADMIT Family Medicine; ATTEND Family Medicine
DX: R53.1 Weakness (principal); Z95.828 Presence of other vascular implants and grafts; I82.402 Acute embolism and thrombosis of unspecified deep veins of left lower extremity; D64.9 Anemia, unspecified; E11.9 Type 2 diabetes mellitus without complications
CPT/HCPCS: 36415; 80048; 83735; 85025; J1815; A9270-GY

== ENCOUNTER 2018-06-19 14:27 | Outpatient (CLI) | payer OTHER ==
[2018-06-19 15:20] LABS: eGFR (Non-African) > 60
== END 2018-06-19 14:32 | disposition home or self-care (01) ==
LOC: LAB 14:27
PROVIDERS: ATTEND Family Medicine
DX: R60.1 Generalized edema (principal); E11.9 Type 2 diabetes mellitus without complications
CPT/HCPCS: 36415; 80048; 83036

== ENCOUNTER 2018-10-12 12:42 | Outpatient (CLI) | payer OTHER ==
[2018-10-12 13:16] LABS: eGFR (Non-African) 41
== END 2018-10-12 12:50 ==
LOC: LAB 12:42
PROVIDERS: ATTEND Family Medicine
DX: R60.0 Localized edema (principal)
CPT/HCPCS: 36415; 80048

== ENCOUNTER 2018-10-16 10:25 | Outpatient (CLI) | payer OTHER ==
[2018-10-16 11:22] LABS: eGFR (Non-African) 43
--- NOTE | 2018-10-16 14:21 | Diagnostic Imaging Report ---
JARRETT ANDERSON [facility] [address] [facility] [address] [address] Report Submission Date: Oct 16, 2018 12:28:43 PM [employer]CH[employer] Patient Study Name: SKIP ESCALANTE Date: Oct 16, 2018 10:36:20 AM [employer] Modality Type: DX Gender: F Description: LT HIP 2VIEW COMPLETE : 42 Institution: [facility] Physician: JARRETT ANDERSON Examination: Plain film pelvis/left hip History: LT HIP PAIN AFTER ROLLING OVER IN BED Comparison exams: None provided Findings: 2 views of the pelvis/left hip demonstrates osteopenia. Articular degenerative spurring. No hip fracture or dislocation. Lucency involving the left sacral region. Lumbar degenerative changes. Vascular calcifications and surgical clips. Impression: Osteopenia and articular degenerative changes. No hip articular fracture/dislocation. Lucency involving the left sacral region - while this could represent overlying bowel gas, fracture cannot be excluded: consider CT pelvis to further evaluate. Electronically signed on Oct 16, 2018 12:28:43 PM [employer] ARCHITECT by: Kanu NAGY
== END 2018-10-16 10:27 ==
LOC: LAB 10:25
PROVIDERS: ATTEND Family Medicine
DX: M62.838 Other muscle spasm (principal); M25.552 Pain in left hip; M85.852 Other specified disorders of bone density and structure, left thigh; M24.152 Other articular cartilage disorders, left hip
CPT/HCPCS: 36415; 80053; 83735

== ENCOUNTER 2018-11-28 13:10 | Outpatient (CLI) | payer OTHER ==
--- NOTE | 2018-11-29 05:29 | Diagnostic Imaging Report ---
JARRETT ANDERSON [facility] [address] [facility] [address] [place], [place]. [address] Report Submission Date: Nov 28, 2018 2:38:24 PM CDT Patient Study Name: SKIP ESCALANTE Date: Nov 28, 2018 1:43:31 PM CDT Modality Type: CT\SR Gender: F Description: CT PELVIS W/O CONTRAST : 42 Institution: [facility] Physician: JARRETT ANDERSON Examination: 1 CT pelvis. L History: BILATERAL HIP PAIN, LEFT WORSE THAN RT, PT STATES SHE MOVED WRONG IN BED ABOUT A MONTH AGO, HEARD AND FELT A POP AND HAS HAD PAIN SINCE Comparison exams: Plain film dated 16 October 2018 Technique: Axial imaging was sagittal coronal reconstruction. Findings: Articular degenerative spurring. Margins of the femoral head, neck, intertrochanteric region and shaft are grossly intact. Superior/inferior pubic rami, acetabulum and iliac wings are without gross irregularity. Sacroiliac joint degenerative spurring. Intrapelvic structures without gross irregularity. Extensive vascular calcifications. Soft tissue structures, by CT sensitivity, without edema or suspicious fluid collections. Impression: Articular degenerative changes. No acute cortical abnormality. No gross soft tissue irregularity by CT sensitivity. If suspect muscle strain or other soft tissue abnormality, consider obtaining MRI to further evaluate. Electronically signed on Nov 28, 2018 2:38:24 PM CDT by: Kanu NAGY
== END 2018-11-28 13:12 ==
LOC: RAD 13:10
PROVIDERS: ATTEND Family Medicine
DX: M24.152 Other articular cartilage disorders, left hip (principal); M24.151 Other articular cartilage disorders, right hip; M25.551 Pain in right hip; M25.552 Pain in left hip
CPT/HCPCS: 72192

== ENCOUNTER 2019-05-20 12:03 | Outpatient (CLI) | payer OTHER ==
[2019-05-20 14:04] LABS: eGFR (Non-African) > 60
[2019-05-21 07:48] LABS: A1C 6.2 % (<5.7)
== END 2019-05-20 12:05 ==
LOC: LAB 12:03
PROVIDERS: ATTEND Family Medicine
DX: E03.9 Hypothyroidism, unspecified (principal); E11.9 Type 2 diabetes mellitus without complications; Z79.4 Long term (current) use of insulin
CPT/HCPCS: 36415; 80048; 83036; 84443

== ENCOUNTER 2019-09-11 16:43 | Outpatient (CLI) | payer OTHER | END 2019-09-11 16:55 | LOC: LABRHC 16:43 | PROVIDERS: ATTEND Family Medicine | DX: E11.9 Type 2 diabetes mellitus without complications (principal) | CPT/HCPCS: 83036 ==